=== PATIENT | male | born 1975 | race Two or more races ===

== ENCOUNTER 2022-10-22 17:52 | Emergency (ER) | payer OTHER ==
[~2022-10-22] VITALS: Ht 167.6 cm; Wt 86.2 kg
[2022-10-22] MEDS ORDERED: NAPROXEN500 MG PO (21:56)
[2022-10-22] MEDS ORDERED: ZANAFLEX4 MG PO (21:56)
== END 2022-10-22 23:08 | disposition home or self-care (01) ==
LOC: ER 17:52
DX: M79.672 Pain in left foot (principal); M25.512 Pain in left shoulder